=== PATIENT | male | born 1995 | race Caucasian/White ===

== ENCOUNTER 2017-12-26 07:33 | Emergency (ER) | END 2017-12-26 09:18 | disposition home or self-care (01) ==

== ENCOUNTER 2018-07-03 09:38 | Emergency (ER) | END 2018-07-03 12:31 | disposition home or self-care (01) ==

== ENCOUNTER 2018-07-06 20:32 | Emergency (ER) | END 2018-07-06 22:40 | disposition home or self-care (01) ==